=== PATIENT | male | born 1935 | race Caucasian/White ===

== ENCOUNTER 2017-07-10 03:56 | Emergency (ER) | payer MEDICARE, BC ==
[~2017-07-10] VITALS: Ht 177.8 cm; Wt 96.6 kg
--- NOTE | 2017-07-10 04:05 | NUR ---
TO BED 9 AN 82 YO MALE PT [id number] FROM HOME WITH C/O "L ABD AND PUBIC AREA PAIN X 1 DAY" +N/D. VSS. NAD NOTED. SKIN WARM AND DRY. COMFORT MEASURES RENDERED. PLACED ON TELE MONITOR.
[2017-07-10] MEDS ORDERED: MORPHINE SULFATE INJ 4 MG/ML DISP.SYRIN ONE (04:37)
--- NOTE | 2017-07-10 04:37 | NUR ---
patient to ct.
[2017-07-10 04:41] LABS: BASOPHILS # (AUTO) 0.1 /CMM (0.0-0.2); BASOPHILS % (AUTO) 0.4 % (0.0-2.0); HEMATOCRIT 38 % (39-51); HEMOGLOBIN 12.7 g/dL (13.5-17.5); LYMPHOCYTES # (AUTO) 0.6 /CMM (0.8-4.8); LYMPHOCYTES % (AUTO) 3.3 % (20.0-44.0); MEAN CORPUSCULAR HEMOGLOBIN 29 PG (26.0-33.0); MEAN CORPUSCULAR HGB CONC 33 g/dl (31.0-36.0); MEAN CORPUSCULAR VOLUME 88 fL (80-96); MONOCYTES # (AUTO) 0.2 /CMM (0.1-1.30); MONOCYTES % (AUTO) 1.3 % (2.0-12.0); NEUTROPHILS # (AUTO) 17.9 /CMM (1.8-8.9); PLATELET COUNT (AUTO) 245 /CMM (150-450); RDW COEFFICIENT OF VARIATION 16.3 (11.5-15.0); RED BLOOD CELL COUNT(AUTO) 4.34 MIL/uL (4.5-6.0); WHITE BLOOD COUNT (AUTO) 18.9 K/uL (4.3-11.0)
[2017-07-10 04:47] LABS: APPEARANCE,URINE SL CLOUDY (CLEAR); BILIRUBIN,URINE 1+ (NEGATIVE); BLOOD, URINE 3+ Ery/uL (NEGATIVE); COLOR,URINE YELLOW (YELLOW); KETONES,URINE NEGATIVE (NEGATIVE); LEUKOCYTE ESTERASE ,URINE TRACE (NEGATIVE); NITRITE, URINE NEGATIVE (NEGATIVE); PH,URINE 5.5 (5.0-8.0); PROTEIN,URINE 1+ mg/dl (NEGATIVE); UGLUCOSE NEGATIVE (NEGATIVE)
[2017-07-10 04:52] LABS: BACTERIA,URINE Rare /HPF (None Seen); SQUAMOUS EPITHELIAL CELL,UR Few /HPF (None Seen); URINE AMORPHOUS URATE Rare /HPF (None Seen)
[2017-07-10 04:53] LABS: FINE GRANULAR CASTS,URINE Rare /LPF (None Seen)
[2017-07-10 04:55] LABS: CALCIUM, SERUM 8.8 mg/dL (8.5-10.1); CARBON DIOXIDE 26 mmol/L (21-32); CHLORIDE 90 mmol/L (98-107); CREATININE 2.6 mg/dL (0.6-1.3); GLUCOSE 188 mg/dL (74-106); POTASSIUM 3.4 mmol/L (3.5-5.1); SODIUM SERUM 127 mmol/L (136-145); UREA NITROGEN, BLOOD 78 mg/dL (7-18)
[2017-07-10 04:59] LABS: BAND % (MANUAL) 3 % (0.0-5.0); LYMPHOCYTES % (MANUAL) 7 % (16-48); MONOCYTES % (MANUAL) 5 % (0-11.0); NEUTROPHILS % (MANUAL) 85 (42-76)
[2017-07-10] MEDS ORDERED: MORPHINE SULFATE INJ 2 MG/ML DISP.SYRIN IV ONE (05:00)
[2017-07-10 05:01] LABS: TROPONIN I < 0.017 ng/mL (0.00-0.056)
[2017-07-10 05:02] LABS: ALANINE AMINOTRANSFERASE 245 U/L (12-78); ALBUMIN 2.3 g/dL (3.4-5.0); ASPARTATE AMINOTRANSFERASE 235 U/L (15-37); BILIRUBIN,DIRECT 2.1 mg/dL (0.0-0.2); LIPASE 78 U/L (73-393); TOTAL PROTEIN, SERUM 6.7 g/dL (6.4-8.2)
[2017-07-10 05:14] LABS: ALKALINE PHOSPHATASE 384 U/L (46-116)
--- NOTE | 2017-07-10 05:26 | NUR ---
CALLED [facility] IN [place] FOR TRANSFER PER PT'S REQUEST. SPOKE WITH SALEEM FROM [facility] AT [phone]. AWAITING CALL BACK REGARDING TRANSFER INFORMATION.
[2017-07-10 06:03] LABS: INR 1.09 (0.87-1.13)
--- NOTE | 2017-07-10 06:03 | NUR ---
DR GEGE MORALES
--- NOTE | 2017-07-10 06:05 | NUR ---
PER PT AND PT'S , CALLED SALEEM FROM [facility] TO CANCEL PT TRANSFER TO [facility].
[2017-07-10 06:06] LABS: ALBUMIN 2.2 g/dL (3.4-5.0); BILIRUBIN,TOTAL 2.8 mg/dL (0.2-1.0); TOTAL PROTEIN, SERUM 6.4 g/dL (6.4-8.2)
[2017-07-10] MEDS ORDERED: IV NS 0.9% 1,000 ML IV PRN (06:45)
--- NOTE | 2017-07-10 06:50 | NUR ---
308-[address] [facility]
[2017-07-10] MEDS ORDERED: PIPERACILLIN /TAZOBACTAM 3.375 G VIAL IV ONE (06:55)
--- NOTE | 2017-07-10 06:55 | NUR ---
MD MARCELINO PAGEMichelle OFFICE CALLED AND LEFT A MESSAGE FOR HIM TO CALL BACK FOR MD RIVERA [phone]
[2017-07-10] MEDS ORDERED: PIPERACILLIN /TAZOBACTAM 3.375 G in IV D5W 50 ML IV ONE (07:00)
[2017-07-10] MEDS ORDERED: ACETAMINOPHEN 325 MG TABLET PO PRN (07:00)
[2017-07-10] MEDS ORDERED: ENOXAPARIN SODIUM 40 MG/0.4 ML DISP.SYRIN SQ SCH (07:00)
[2017-07-10] MEDS ORDERED: Z GUARD REMEDY 2 OZ OINT TP PRN (07:00)
[2017-07-10] MEDS ORDERED: MAG HYDROX/AL HYDROX/SIMETH 30 ML UDC PO PRN (07:00)
[2017-07-10] MEDS ORDERED: ONDANSETRON HCL/PF 4 MG/2 ML VIAL IVP PRN (07:00)
[2017-07-10] MEDS ORDERED: HYDROCODONE/APAP 5/325MG 1 EACH TABLET PO PRN (07:00)
[2017-07-10] MEDS ORDERED: MAGNESIUM HYDROXIDE 30 ML UDC PO PRN (07:00)
[2017-07-10] MEDS ORDERED: ZOLPIDEM TARTRATE 5 MG TABLET PO PRN (07:00)
--- NOTE | 2017-07-10 09:14 | NUR ---
Patient transferred to [facility] via [facility] in stable condition. Written and verbal after care instructions given. Patient verbalized understanding of instruction.
--- NOTE | 2017-07-10 09:19 | NUR ---
Report given Lauren CARRERO for continuity of care in [facility]
[2017-07-10 09:21] VITALS: BP 104/73
[2017-07-10] MEDS ORDERED: PIPERACILLIN /TAZOBACTAM 4.5 G in IV D5W 50 ML IV SCH (12:00)
== END 2017-07-10 09:24 | disposition short-term general hospital (02) ==
LOC: ER 03:58 → TELE 06:52 → UNDOADMIN 06:52 → ER 09:24
DX: K81.0 Acute cholecystitis (principal); R10.11 Right upper quadrant pain; E11.9 Type 2 diabetes mellitus without complications; Z95.0 Presence of cardiac pacemaker
CPT/HCPCS: 36415; 71045-TC; 76705-TC; 80048-TC; 80076-TC; 81000-TC; 83605-TC; 83690-TC; 84484-TC; 85025-TC; 85730-TC; 87040-TC; 87086-TC; A4606; J2270; J2543; J7060; Z7610